=== PATIENT | female | born 1965 | race Caucasian/White ===

== ENCOUNTER 2019-02-09 17:11 | Emergency (ER) | payer MEDICARE, MEDICAID ==
--- NOTE | 2019-02-09 17:59 | EDM.PDOC ---
ED HPI GENERAL MEDICAL PROBLEM - General Chief Complaint: General Stated Complaint: right groin pain Time Seen by Provider: 02/09/19 17:39 Source of Information: Reports: Patient History Limitations: Reports: No Limitations - History of Present Illness INITIAL COMMENTS - FREE TEXT/NARRATIVE: Patient presents with severe, abrupt-onset, right groin pain at the site of an angio plug or seal that was placed yesterday after a cerebral angiogram at [facility]. She says it was fine until she was putting on her socks about half hour ago. No redness, fever or bleeding. There is a little tingling down the right leg. left groin Pain Score (Numeric/FACES): 9 - Related Data Allergies Allergy/AdvReac Type Severity Reaction Status Date / Time bismuth subsalicylate Allergy Cannot Verified 02/09/19 17:27 [From Pepto-Bismol] Remember Home Meds: Home Meds ALPRAZolam [Xanax] 0.25 mg PO TID 02/09/19 [History] Albuterol [Ventolin HFA] 2 puff INH Q6H 02/09/19 [History] Baclofen 20 mg PO QID 02/09/19 [History] Carbidopa/Levodopa [Carbidopa-Levodopa 10-100] 1 each PO DAILY 02/09/19 [History ] Gabapentin [Neurontin] 800 mg PO TID 02/09/19 [History] Naproxen 250 mg PO BID 02/09/19 [History] Naproxen Sodium [Aleve] 220 mg PO DAILY 02/09/19 [History] Omeprazole 20 mg PO DAILY 02/09/19 [History] Ondansetron [Zuplenz] 4 mg PO DAILY PRN 02/09/19 [History] Venlafaxine [Effexor] 75 mg PO DAILY 02/09/19 [History] Zolpidem [Ambien] 10 mg PO BEDTIME PRN 02/09/19 [History] oxyCODONE HCl/Acetaminophen [Oxycodone-Acetaminophen 10-300] 1 each PO Q4H PRN 02/09/19 [History] Past Medical History HEENT History: Reports: Impaired Vision Cardiovascular History: Reports: Heart Murmur, Hypertension Respiratory History: Reports: Asthma Gastrointestinal History: Reports: GERD 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 Neurological History: Reports: Cerebral Aneurysms, Migraines Psychiatric History: Reports: Anxiety, Depression - Past Surgical History GI Surgical History: Reports: Colonoscopy Neurological Surgical History: Reports: Other (See Below) Other Neurological Surgeries/Procedures: angiogram Social & Family History - Family History Family Medical History: Noncontributory - Tobacco Use Smoking Status *Q: Current Every Day Smoker Years of Tobacco use: 45 Packs/Tins Daily: 0.7 Used Tobacco, but Quit: No Second Hand Smoke Exposure: Yes - Caffeine Use Caffeine Use: Reports: Soda - Recreational Drug Use Recreational Drug Use: No ED ROS GENERAL - Review of Systems Review Of Systems: See Below Constitutional: Denies: Fever, Weakness HEENT: Reports: No Symptoms Respiratory: Reports: No Symptoms Cardiovascular: Denies: Chest Pain, Lightheadedness, Syncope Endocrine: Reports: No Symptoms GI/Abdominal: Denies: Abdominal Pain, Diarrhea, Vomiting : Denies: Dysuria, Flank Pain Musculoskeletal: Reports: Back Pain (chronic). Denies: Neck Pain, Shoulder Pain , Arm Pain, Foot Pain Skin: Denies: Cyanosis, Jaundice, Mottled, Pallor, Diaphoresis Neurological: Denies: Confusion, Dizziness, Headache, Seizure, Syncope, Trouble Speaking Psychiatric: Reports: Anxiety. Denies: Agitation, Confusion ED EXAM, GENERAL - Physical Exam Exam: See Below Exam Limited By: No Limitations General Appearance: Alert, WD/WN, No Apparent Distress Eye Exam: Bilateral Eye: EOMI, Normal Inspection, PERRL Ears: Normal External Exam, Hearing Grossly Normal Nose: Normal Inspection, No Blood Throat/Mouth: Normal Inspection, Normal Lips, Normal Voice, No Airway Compromise Head: Atraumatic, Normocephalic Neck: Normal Inspection, Full Range of Motion Respiratory/Chest: No Respiratory Distress, Lungs Clear, No Accessory Muscle Use , Decreased Breath Sounds (bilat) Cardiovascular: Regular Rate, Rhythm, No Murmur GI/Abdominal: Normal Bowel Sounds, Soft, Non-Tender Back Exam: Normal Inspection, Full Range of Motion. No: CVA Tenderness (L), CVA Tenderness (R) Extremities: No Pedal Edema, Normal Capillary Refill, Other (In the right groin there is mild bruising and moderate swelling/induration at the site of entry to the femoral vessel. The swelling is annular and about 3 cm in size. No external bleeding.) Neurological: Alert, Oriented, Normal Cognition, No Motor/Sensory Deficits Psychiatric: Normal Affect, Anxious Skin Exam: Warm, Dry, Intact, Normal Color, No Rash Course - Vital Signs Last Recorded V/S: Last Vital Signs Temp 98.4 F 02/09/19 17:17 Pulse 81 02/09/19 17:42 Resp 14 02/09/19 17:42 BP 179/132 H 02/09/19 17:42 Pulse Ox 96 02/09/19 17:42 - Re-Assessments/Exams Free Text/Narrative Re-Assessment/Exam: 02/09/19 18:16 I called [facility] and discussed case with Dr. Bah, partner of the interventional neurologist that did the procedure yesterday. He said the two most concerning side effects are a loss of pedal pulses or peritoneal hematoma evidence by new back pain. He recommends putting direct pressure on it for 10 minutes to dissipate the swelling and rest for the next 3 days; avoiding lifting and stairs. Patient says she knows where to put the pressure as they showed her yesterday so she is doing it herself. 02/09/19 18:32 She is feeling quite a bit of the usual pain in her back and hasn't had her oxycodone for 7 hours. This is also raising her blood pressure. Will give a dose now. 02/09/19 19:04 Patient is feeling quite a bit better. Discussed findings and recommendations. Pt discharged to home in stable condition. Departure - Departure Time of Disposition: 19:01 Disposition: Home, Self-Care 01 Condition: Good Clinical Impression: Groin pain Qualifiers: Laterality: right Qualified Code(s): R10.31 - Right lower quadrant pain - Discharge Information Additional Instructions: 1. Rest as much as possible for the next 3 days. Avoid stairs and lifting. 2. Take your pain medication as directed and needed. 3. Follow up with your PCP or the neurologist as previous scheduled. 4. Return to ER as needed.
[2019-02-09] MEDS ORDERED: Acetaminophen/oxyCODONE 325-5 MG Tab PO ONE (18:28)
== END 2019-02-09 19:10 | disposition home or self-care (01) ==
LOC: KA.ED 17:11
DX: R10.31 Right lower quadrant pain (principal); I10 Essential (primary) hypertension; J45.909 Unspecified asthma, uncomplicated; K21.9 Gastro-esophageal reflux disease without esophagitis; F17.210 Nicotine dependence, cigarettes, uncomplicated; Z88.8 Allergy status to other drugs, medicaments and biological substances; Z79.899 Other long term (current) drug therapy
CPT/HCPCS: 99283; 99284; A9270-GY

== ENCOUNTER 2019-05-07 06:01 | Emergency (ER) | payer MEDICARE, MEDICAID ==
[2019-05-07] MEDS ORDERED: Sodium Chloride 0.9% 1,000 ML ONE (06:05)
[2019-05-07] MEDS ORDERED: Sodium Chloride 0.9% 1,000 ML IV ONE (06:06)
--- NOTE | 2019-05-07 06:18 | EDM.PDOC ---
ED HPI GENERAL MEDICAL PROBLEM - General Chief Complaint: Neurological Problem Stated Complaint: possible stroke Time Seen by Provider: 05/07/19 06:07 Source of Information: Reports: EMS, Family History Limitations: Reports: Altered Mental Status - History of Present Illness INITIAL COMMENTS - FREE TEXT/NARRATIVE: 54 YO WF presents to ER unresponsive. Pt was last seen awake/alert around 9am yesterday. Pt with PMH of cerebral aneurysm. Pt does respond to painful stimuli. Pt is posturing on the left side and flaccid on the right. Pt with history of chronic pain and takes oxycodone/Neurontin. Daughter states she thinks her mom is coming off oxycodone. Pt has nasal trumpet to protect the airway and is breathing at a rate of 25/minute. Discussed case with Neurology- Dr Carvajal who has accepted in [place]. [facility] has been alerted. At this point pt's airway is protected. Ativan has been given for possible seizure activity. Pt is tachycardic and hypertensive. HR-105, BP-180/100. Pupils are dilated and slow to respond. Onset: Unknown/Unsure Location: Reports: Generalized - Related Data Allergies Allergy/AdvReac Type Severity Reaction Status Date / Time bismuth subsalicylate Allergy Cannot Verified 02/09/19 17:27 [From Pepto-Bismol] Remember Home Meds: Home Meds Albuterol [Ventolin HFA] 2 puff INH Q6H 02/09/19 [History] Baclofen 20 mg PO QID 02/09/19 [History] Carbidopa/Levodopa [Carbidopa-Levodopa 10-100] 1 each PO DAILY 02/09/19 [History ] Gabapentin [Neurontin] 800 mg PO TID 02/09/19 [History] Naproxen Sodium [Aleve] 220 mg PO DAILY 02/09/19 [History] Venlafaxine [Effexor] 75 mg PO DAILY 02/09/19 [History] Zolpidem [Ambien] 10 mg PO BEDTIME PRN 02/09/19 [History] ALPRAZolam [Alprazolam] 0.5 mg PO TID PRN 05/07/19 [History] Lisinopril 5 mg PO ASDIRECTED 05/07/19 [History] oxyCODONE HCl [Oxycodone HCl] 10 mg PO Q4HR PRN 05/07/19 [History] Past Medical History HEENT History: Reports: Impaired Vision Cardiovascular History: Reports: Heart Murmur, Hypertension Respiratory History: Reports: Asthma Gastrointestinal History: Reports: GERD 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 Neurological History: Reports: Cerebral Aneurysms, Migraines Psychiatric History: Reports: Anxiety, Depression - Past Surgical History GI Surgical History: Reports: Colonoscopy Neurological Surgical History: Reports: Other (See Below) Other Neurological Surgeries/Procedures: angiogram Social & Family History - Family History Family Medical History: Noncontributory - Caffeine Use Caffeine Use: Reports: Soda ED ROS GENERAL - Review of Systems Review Of Systems: Unable To Obtain - Physical Exam Exam: Not Obtained Exam Limited By: Altered Mental Status General Appearance: Obtunded Eye Exam: Bilateral Eye: PERRL Neck: Normal Inspection, Supple, Non-Tender Respiratory/Chest: No Respiratory Distress, Lungs Clear, Normal Breath Sounds, No Accessory Muscle Use, Chest Non-Tender Cardiovascular: Normal Peripheral Pulses, Regular Rate, Rhythm, No Edema, No Gallop, No JVD, No Murmur, No Rub, Tachycardia GI/Abdominal: Normal Bowel Sounds, Soft, Non-Tender, No Organomegaly, No Distention, No Abnormal Bruit, No Mass Skin Exam: Warm, Dry, Intact, Normal Color, No Rash EKG INTERPRETATION EKG Date: 05/07/19 Time: 06:08 Rhythm: NSR Rate (Beats/Min): 106 [place]: RAD-Right [place] Deviation P-Wave: Present QRS: Normal ST-T: Normal QT: Normal Course - Orders/Labs/Meds Orders: Active Orders 24 hr Category Date Time Status EKG Documentation Completion [RC] ASDIRECTED Care 05/07/19 06:06 Ordered Lynn Catheter Insertion [Insert Urinary Catheter] [OM. Care 05/07/19 06:30 Ordered PC] Q24H Urinary Catheter Assessment [RC] ASDIRECTED Care 05/07/19 06:26 Ordered Chest 1V Frontal [CR] Stat Exams 05/07/19 06:05 Ordered Head wo Cont [CT] Stat Exams 05/07/19 06:05 Ordered CBC WITH AUTO DIFF [HEME] Stat Lab 05/07/19 06:05 Ordered CK W CKMB [CHEM] Stat Lab 05/07/19 06:05 Ordered COMPREHENSIVE METABOLIC PN,CMP [CHEM] Stat Lab 05/07/19 06:05 Ordered TROPONIN I [CHEM] Stat Lab 05/07/19 06:05 Ordered UA W/MICROSCOPIC [URIN] Stat Lab 05/07/19 06:05 Ordered Sodium Chloride 0.9% @ 999 MLS/HR (1000ml) Med 05/07/19 06:06 Ordered Sodium Chloride 0.9% [Normal Saline] 1,000 ml IV .BOLUS EKG 12 Lead [EK] Routine Ther 05/07/19 06:05 Ordered Medication Orders Sodium Chloride (Normal Saline) 1,000 mls @ 999 mls/hr IV .BOLUS ONE Stop: 05/07/19 07:06 Meds: Medications Generic Name Dose Route Start Last Admin Trade Name Freq PRN Reason Stop Dose Admin Sodium Chloride 1,000 mls @ 999 mls/hr 05/07/19 06:06 Normal Saline IV 05/07/19 07:06 .BOLUS ONE Discontinued Medications Generic Name Dose Route Start Last Admin Trade Name Freq PRN Reason Stop Dose Admin Sodium Chloride Confirm 05/07/19 06:05 Normal Saline Administered 05/07/19 06:06 Dose 1,000 mls @ as directed .ROUTE .STK-MED ONE Lorazepam 1 mg 05/07/19 06:25 Ativan IVPUSH 05/07/19 06:26 ONETIME ONE Lorazepam 1 mg 05/07/19 06:41 Ativan IVPUSH 05/07/19 06:42 ONETIME ONE Lorazepam Confirm 05/07/19 06:41 Ativan Administered 05/07/19 06:42 Dose 2 mg .ROUTE .STK-MED ONE - Radiology Interpretation Free Text/Narrative:: CT head- NAD CXR- NAD - Re-Assessments/Exams Free Text/Narrative Re-Assessment/Exam: 05/07/19 06:53 after Ativan 2mg pt moving left side, and right side posturing improved. Pupils still dilated and sluggish. Will treat seizure activity while watching respiratory rate, airway and blood pressure 05/07/19 06:57 Departure - Departure Time of Disposition: 06:45 Disposition: DC/Tfer to Acute Hospital 02 Condition: Critical Clinical Impression: Unresponsive state, Seizure - Discharge Information Forms: ED Department Discharge, Interfacility Transfer EMTALA - My Orders Last 24 Hours: My Active Orders 05/07/19 06:05 Chest 1V Frontal [CR] Stat Head wo Cont [CT] Stat CBC WITH AUTO DIFF [HEME] Stat CK W CKMB [CHEM] Stat COMPREHENSIVE METABOLIC PN,CMP [CHEM] Stat TROPONIN I [CHEM] Stat UA W/MICROSCOPIC [URIN] Stat EKG 12 Lead [EK] Routine 05/07/19 06:06 EKG Documentation Completion [RC] ASDIRECTED Sodium Chloride 0.9% @ 999 MLS/HR (1000ml) Sodium Chloride 0.9% [Normal Saline] 1,000 ml IV .BOLUS 05/07/19 06:26 Urinary Catheter Assessment [RC] ASDIRECTED 05/07/19 06:30 Lynn Catheter Insertion [Insert Urinary Catheter] [OM.PC] Q24H - Assessment/Plan Last 24 Hours: My Active Orders 05/07/19 06:05 Chest 1V Frontal [CR] Stat Head wo Cont [CT] Stat CBC WITH AUTO DIFF [HEME] Stat CK W CKMB [CHEM] Stat COMPREHENSIVE METABOLIC PN,CMP [CHEM] Stat TROPONIN I [CHEM] Stat UA W/MICROSCOPIC [URIN] Stat EKG 12 Lead [EK] Routine 05/07/19 06:06 EKG Documentation Completion [RC] ASDIRECTED Sodium Chloride 0.9% @ 999 MLS/HR (1000ml) Sodium Chloride 0.9% [Normal Saline] 1,000 ml IV .BOLUS 05/07/19 06:26 Urinary Catheter Assessment [RC] ASDIRECTED 05/07/19 06:30 Lynn Catheter Insertion [Insert Urinary Catheter] [OM.PC] Q24H Assessment:: 1. Unresponsive- possible CVA vs seizure v Plan: 1. Discussed with Dr [facility]vajal Neuro in [facility] who accepted 2. concern for possible seizure activity- ativan 2mg IV given 3. supportive care 4. unable to fly patient due to weather. Fix wing aircraft 1 hour away. Will transport by ground ALS ambulance
[2019-05-07] MEDS ORDERED: LORazepam 2 MG/ML SDV IVPUSH ONE ×3 (06:25→06:56)
[2019-05-07] MEDS ORDERED: LORazepam 2 MG/ML SDV ONE (06:41)
[2019-05-07 07:10] LABS: ANION GAP 20.3 mmol/L (5-15); CHLORIDE,CL 109 mmol/L (98-115); SODIUM,NA 145 mmol/L (136-145)
--- NOTE | 2019-05-07 08:18 | CT ---
[id number] CT/CT Head WO IV EXAM: NONCONTRAST HEAD CT INDICATION: ALTERED MENTAL STATUS. COMPARISON: Brain MRI January 18, 2019. 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 Metallic structures are noted in the right scalp. Streak artifact from the scalp metallic clips in the vascular coils somewhat limits evaluation. Evaluation is particularly limited at the level of the midbrain and tereso. No mass effect, midline shift, hydrocephalus, extra-axial collection or acute territorial infarct is identified. IMPRESSION: 1. No acute findings. Arturo Le MD 05/07/19 0816 Thank you for allowing us to participate in the care of your patient.
--- NOTE | 2019-05-07 09:11 | CR ---
[id number] RAD/RAD Chest PA or AP 1V EXAM: SINGLE VIEW CHEST. INDICATION: ALTERED MENTAL STATUS COMPARISON: CORRELATION IS MADE WITH THE EXAM OF OCTOBER 30, 2018. FINDINGS: The lungs are clear. Surgical changes of the right axillary region are seen. The cardiomediastinal contour is stable. IMPRESSION: NO ACUTE PROCESS. Davie French MD 05/07/19 0969 Thank you for allowing us to participate in the care of your patient.
== END 2019-05-07 07:00 ==
LOC: KA.ED 06:01
DX: R40.0 Somnolence (principal); R56.9 Unspecified convulsions; I10 Essential (primary) hypertension; J45.909 Unspecified asthma, uncomplicated; F41.9 Anxiety disorder, unspecified; F32.9 Major depressive disorder, single episode, unspecified; Z88.3 Allergy status to other anti-infective agents; Z79.891 Long term (current) use of opiate analgesic; Z79.899 Other long term (current) drug therapy
CPT/HCPCS: 36415; 51702; 70450; 71045; 80053; 81001; 82550; 82553; 84484; 85025; 93005; 96361; 96374; 99285; J2060; J7030; 99284

== ENCOUNTER 2019-06-13 18:46 | Emergency (ER) | payer MEDICARE, MEDICAID ==
--- NOTE | 2019-06-13 19:19 | EDM.PDOC ---
ED HPI GENERAL MEDICAL PROBLEM - General Stated Complaint: LOW BLOOD PRESSURE Time Seen by Provider: 06/13/19 18:50 Source of Information: Reports: Patient, Significant Other History Limitations: Reports: No Limitations - History of Present Illness INITIAL COMMENTS - FREE TEXT/NARRATIVE: Patient presents with hypotension. She says her blood pressure was 80/60 at home and she has been lightheaded with standing the last couple days. She thinks she was dehydrated so the last 3 days has been drinking 4-6 16-oz bottles daily. She was in [facility] a month ago and was started on Carvedilol and Lisinopril for hypertension (150/90 typically). She has an appointment with [facility] tomorrow to recheck hypertensive treatment and lung congestion. She has smoked for years and has "bronchial asthma" she says but not aware of any emphysema or COPD. - Related Data Allergies Allergy/AdvReac Type Severity Reaction Status Date / Time bismuth subsalicylate Allergy Cannot Verified 02/09/19 17:27 [From Pepto-Bismol] Remember Home Meds: Home Meds Albuterol [Ventolin HFA] 2 puff INH Q6H PRN 02/09/19 [History] Baclofen 20 mg PO QID 02/09/19 [History] Carbidopa/Levodopa [Carbidopa-Levodopa 10-100] 1 each PO DAILY 02/09/19 [History ] Gabapentin [Neurontin] 800 mg PO TID 02/09/19 [History] Naproxen Sodium [Aleve] 220 mg PO DAILY 02/09/19 [History] Venlafaxine [Effexor] 75 mg PO DAILY 02/09/19 [History] Zolpidem [Ambien] 10 mg PO BEDTIME PRN 02/09/19 [History] ALPRAZolam [Alprazolam] 0.5 mg PO TID PRN 05/07/19 [History] Lisinopril 5 mg PO ASDIRECTED 05/07/19 [History] oxyCODONE HCl [Oxycodone HCl] 10 mg PO Q4HR PRN 05/07/19 [History] Carvedilol 3.125 mg PO BID 06/13/19 [History] Escitalopram [Lexapro] 20 mg PO DAILY 06/13/19 [History] Ondansetron [Zofran ODT] 4 mg PO ASDIRECTED 06/13/19 [History] Vitamin B Complex [B Complex] 1 each PO DAILY 06/13/19 [History] levETIRAcetam [Levetiracetam] 1,000 mg PO BID 06/13/19 [History] Past Medical History HEENT History: Reports: Impaired Vision Cardiovascular History: Reports: Heart Murmur, Hypertension Respiratory History: Reports: Asthma Gastrointestinal History: Reports: 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 Neurological History: Reports: Cerebral Aneurysms, Migraines Psychiatric History: Reports: Anxiety, Depression Dermatologic History: Reports: Melanoma, Other (See Below) Other Dermatologic History: unsure, though possibly has had melanoma with skin grafting. - Past Surgical History GI Surgical History: Reports: Colonoscopy Neurological Surgical History: Reports: Other (See Below) Other Neurological Surgeries/Procedures: angiogram; coiling of cerebral aneurysm in February. Social & Family History - Family History Family Medical History: Noncontributory - Caffeine Use Caffeine Use: Reports: Soda ED ROS GENERAL - Review of Systems Review Of Systems: See Below Constitutional: Denies: Fever, Chills, Malaise, Weakness HEENT: Denies: Ear Pain, Throat Pain, Vision Change Respiratory: Reports: Wheezing. Denies: Shortness of Breath Cardiovascular: Reports: Lightheadedness. Denies: Chest Pain, Syncope Endocrine: Reports: No Symptoms GI/Abdominal: Denies: Abdominal Pain : Denies: Dysuria Musculoskeletal: Reports: Neck Pain (chronic). Denies: Shoulder Pain, Arm Pain Skin: Denies: Cyanosis, Jaundice, Mottled, Pallor, Diaphoresis Neurological: Denies: Confusion, Dizziness, Seizure, Syncope, Trouble Speaking, Difficulty Walking Psychiatric: Denies: Agitation ED EXAM, GENERAL - Physical Exam Exam: See Below Exam Limited By: No Limitations General Appearance: Alert, WD/WN, No Apparent Distress Eye Exam: Bilateral Eye: EOMI, Normal Inspection, PERRL Ears: Normal External Exam, Hearing Grossly Normal Nose: Normal Inspection, No Blood Throat/Mouth: Normal Inspection, Normal Lips, Normal Voice (smokers voice), No Airway Compromise Head: Atraumatic, Normocephalic Neck: Normal Inspection, Full Range of Motion Respiratory/Chest: Rales (mild, bases), Wheezing (bilat with exhaling), Prolonged Expiration (mild). No: Rhonchi, Stridor, Accessory Muscle Use Cardiovascular: Normal Peripheral Pulses, Regular Rate, Rhythm, No Edema, No Gallop Peripheral Pulses: 2+: Carotid (L), Carotid (R), Radial (L), Radial (R), Posterior Tibial (L), Posterior Tibial (R) GI/Abdominal: Normal Bowel Sounds, Soft, Non-Tender Back Exam: Normal Inspection, Full Range of Motion Extremities: Normal Inspection, Normal Range of Motion Neurological: Alert, Oriented, Normal Cognition, No Motor/Sensory Deficits Psychiatric: Normal Affect, Normal Mood Skin Exam: Warm, Dry, Intact, Normal Color, No Rash Course - Vital Signs Last Recorded V/S: Last Vital Signs Temp 97.3 F 06/13/19 19:03 Pulse 79 06/13/19 20:17 Resp 18 06/13/19 20:17 BP 106/47 L 06/13/19 20:17 Pulse Ox 91 L 06/13/19 20:17 - Orders/Labs/Meds Orders: Active Orders 24 hr Category Date Time Status EKG Documentation Completion [RC] ASDIRECTED Care 06/13/19 20:19 Ordered EKG 12 Lead [EK] Routine Ther 06/13/19 20:19 Ordered Labs: Laboratory Tests 06/13/19 06/13/19 Range/Units 19:15 19:15 WBC 9.00 D (5.00-10.00) 10^3/uL RBC 4.98 (3.80-5.50) 10^6/uL Hgb 15.0 D (12.0-16.0) g/dL Hct 44.5 (37.0-47.0) % MCV 89.4 (82.0-92.0) fL MCH 30.1 (27.0-31.0) pg MCHC 33.7 (32.0-36.0) g/dL RDW 14.5 (11.5-14.5) % Plt Count 243 D (150-400) 10^3/uL MPV 9.8 (7.4-10.4) fL Immature Gran % (Auto) 0.1 (0.0-5.0) % Neut % (Auto) 81.4 H (50.0-70.0) % Lymph % (Auto) 11.0 L (20.0-40.0) % [place] % (Auto) 6.1 (2.0-8.0) % Eos % (Auto) 1.2 (1.0-3.0) % Baso % (Auto) 0.2 (0.0-1.0) % Immature Gran # (Auto) 0.01 (0.00-0.50) 10^3/uL Neut # (Auto) 7.32 H (2.50-7.00) 10^3/uL Lymph # (Auto) 0.99 L (1.00-4.00) 10^3/uL [place] # (Auto) 0.55 (0.10-0.80) 10^3/uL Eos # (Auto) 0.11 (0.10-0.30) 10^3/uL Baso # (Auto) 0.02 (0.00-0.10) 10^3/uL Sodium 144 (136-145) mmol/L Potassium 3.7 D (3.3-5.3) mmol/L Chloride 105 (98-115) mmol/L Carbon Dioxide 29.9 (21.0-32.0) mmol/L Anion Gap 12.8 (5-15) mmol/L BUN 29 H (6-25) mg/dL Creatinine 2.98 H D (0.51-1.17) mg/dL Est Cr Clr Drug Dosing 16.10 mL/min Estimated GFR (MDRD) 16 mL/min Glucose 132 H (75 - 99) mg/dL Calcium 9.4 (8.7-10.3) mg/dL Meds: Medications Discontinued Medications Generic Name Dose Route Start Last Admin Trade Name Freq PRN Reason Stop Dose Admin Sodium Chloride 1,000 mls @ 999 mls/hr 06/13/19 19:14 06/13/19 19:32 Normal Saline IV 06/13/19 20:14 999 mls/hr .BOLUS ONE Administration Ondansetron HCl 4 mg 06/13/19 19:25 06/13/19 19:36 Zofran IVPUSH 06/13/19 19:26 4 mg ONETIME ONE Administration - Re-Assessments/Exams Free Text/Narrative Re-Assessment/Exam: 06/13/19 20:36 Creatinine 2.98, GFR 16, BUN 29. These are all acute changes in the last month. Discussed with Dr. Lopez and will stop the Lisinopril and hold the carvedilol for now. Pt will recheck tomorrow in clinic and may need to come for repeat labs in two days. Discussed findings and treatment plan with patient. EKG and CXR look okay. Patient discharged to home in stable condition after a liter of IV saline. Departure - Departure Time of Disposition: 20:34 Disposition: Home, Self-Care 01 Condition: Good Clinical Impression: Acute renal failure due to angiotensin converting enzyme (LUCERO) inhibitor, Hypotension due to medication Referrals: Maida Diaz PA-C [Primary Care Provider] - Additional Instructions: 1. Stop taking your Lisinopril. 2. Don't take your Carvedilol at least until you see your PCP, LIG[facility] Park tomorrow in clinic as scheduled. - My Orders Last 24 Hours: My Active Orders 06/13/19 20:19 EKG Documentation Completion [RC] ASDIRECTED EKG 12 Lead [EK] Routine - Assessment/Plan Last 24 Hours: My Active Orders 06/13/19 20:19 EKG Documentation Completion [RC] ASDIRECTED EKG 12 Lead [EK] Routine
[2019-06-13] MEDS: Sodium Chloride 0.9% 1,000 ML IV ONE (19:32)
[2019-06-13] MEDS: Ondansetron 4 MG/2 ML SDV IVPUSH ONE (19:36)
[2019-06-13 19:45] LABS: ANION GAP 12.8 mmol/L (5-15)
--- NOTE | 2019-06-13 20:15 | CR ---
[id number] RAD/RAD Chest PA And Lateral EXAM: RAD Chest PA And Lateral CLINICAL DATA: WHEEZING COMPARISON: CORRELATION IS MADE WITH THE EXAM OF MAY 07, 2019 FINDINGS: The lungs are clear but hyperaerated Surgical clips are seen in the right axillary region The cardiomediastinal contour is stable IMPRESSION: AIRWAY DISEASE Davie French MD 06/13/192013 Thank you for allowing us to participate in the care of your patient.
== END 2019-06-13 20:40 | disposition home or self-care (01) ==
LOC: KA.ED 18:46
DX: N17.9 Acute kidney failure, unspecified (principal); I95.2 Hypotension due to drugs; T46.4X5A Adverse effect of angiotensin-converting-enzyme inhibitors, initial encounter; I10 Essential (primary) hypertension; F41.9 Anxiety disorder, unspecified; F32.9 Major depressive disorder, single episode, unspecified; Z88.8 Allergy status to other drugs, medicaments and biological substances
CPT/HCPCS: 36415; 71046; 80048; 85025; 93005; 96361; 96374; 99284; 99285-25; J2405; J7030

== ENCOUNTER 2019-08-09 17:29 | Emergency (ER) | payer MEDICARE, MEDICAID, OTHER ==
[2019-08-09] MEDS ORDERED: Sodium Chloride 0.9% 10 ML Syringe FLUSH PRN (18:04)
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
[2019-08-09 18:32] LABS: ANION GAP 12.7 mmol/L (5-15); CHLORIDE,CL 105 mmol/L (98-115); SODIUM,NA 142 mmol/L (136-145)
[2019-08-09] MEDS ORDERED: Sodium Chloride 0.9% 1,000 ML IV ONE (18:43)
--- NOTE | 2019-08-09 18:43 | CT ---
[id number] CT/CT Head WO IV EXAM: CT Head WO IV CLINICAL DATA: CONFUSION. COMPARISON STUDY: None FINDINGS: No intracranial hemorrhage, extra-axial fluid collection, mass, or acute ischemia. 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 Soft tissues are unremarkable. Paranasal sinuses and mastoid air cells are clear. IMPRESSION: No acute intracranial findings. Elder Greenberg DO 08/09/19 1843 Thank you for allowing us to participate in the care of your patient.
--- NOTE | 2019-08-09 18:44 | CR ---
[id number] RAD/RAD Chest PA And Lateral EXAM: RAD Chest PA And Lateral INDICATION: CONFUSION. COMPARISON: June 13, 2019. DISCUSSION: Cardiomediastinal silhouette is normal in size and contour. No infiltrate, effusion, pneumothorax, or edema. Left basilar subsegmental atelectasis and/or scarring. IMPRESSION: No acute cardiopulmonary abnormality. Elder Greenberg DO 08/09/19 1843 Thank you for allowing us to participate in the care of your patient.
[2019-08-09 18:46] LABS: THC SCREEN,URINE 50 NG/ML POSITIVE (NEGATIVE)
[2019-08-09 18:47] LABS: BARBITURATE SCREEN,URINE NEGATIVE (NEGATIVE); BENZODIAZEPINES SCREEN,URINE POSITIVE (NEGATIVE); TCA SCREEN,URINE NEGATIVE (NEGATIVE)
[2019-08-09] MEDS ORDERED: Cephalexin 250 MG Cap PO ONE (18:52)
[2019-08-09] MEDS ORDERED: Phenazopyridine 100 MG Tab PO PRN (18:52)
== END 2019-08-09 19:15 | disposition home or self-care (01) ==
LOC: KA.ED 17:29
DX: N39.0 Urinary tract infection, site not specified (principal); I10 Essential (primary) hypertension; F41.9 Anxiety disorder, unspecified; F32.9 Major depressive disorder, single episode, unspecified; K21.9 Gastro-esophageal reflux disease without esophagitis; J45.909 Unspecified asthma, uncomplicated; Z88.8 Allergy status to other drugs, medicaments and biological substances; Z79.899 Other long term (current) drug therapy; Z79.51 Long term (current) use of inhaled steroids
CPT/HCPCS: 36415; 70450; 71046; 80053; 80305; 81001; 85025; 87086; 93005; 99285; A9270; 99284

== ENCOUNTER 2019-12-01 19:38 | Observation (INO) | payer MEDICARE, MEDICAID ==
[2019-12-01] MEDS ORDERED: Sodium Chloride 0.9% 10 ML Syringe FLUSH PRN (19:50)
[2019-12-01] MEDS ORDERED: Sodium Chloride 0.9% 1,000 ML ONE (19:51)
[2019-12-01] MEDS ORDERED: Sodium Chloride 0.9% 1,000 ML IV ONE (19:54)
[2019-12-01] MEDS ORDERED: Naloxone 0.4 MG/ML Syringe IVPUSH ONE (19:54)
--- NOTE | 2019-12-01 20:17 | EDM.PDOC ---
ED HPI GENERAL MEDICAL PROBLEM - General Chief Complaint: Neurological Problem Stated Complaint: UNRESPONSIVE Time Seen by Provider: 12/01/19 19:52 Source of Information: Reports: EMS, EMS Notes Reviewed, Family History Limitations: Reports: Altered Mental Status - History of Present Illness INITIAL COMMENTS - FREE TEXT/NARRATIVE: Patient is a 54-year-old female that presents to the emergency department this evening via EMS secondary to unresponsive state. The local police and EMS were called to the home by family member who stated that she was unresponsive. Upon arriving at the home, they found the patient in bed, only responsive to pain. Patient was transported to ER, no medication given in route. Upon presentation to the emergency department, patient was found to be lethargic but responsive to voice and opening eyes. Patient's pupils were 8 mm dilated and nonresponsive to light. Discussion with family members revealed patient uses OxyContin, crushed and snorted. This is been a chronic condition. Family members denied any trauma. Patient does not respond to questions at this time. However, she will open eyes and move extremities. Onset: Unknown/Unsure Duration: Chronic (Narcotic use), Getting Worse Severity: Moderate Improves with: Reports: None Worsens with: Reports: None Associated Symptoms: Reports: No Other Symptoms - Related Data Allergies Allergy/AdvReac Type Severity Reaction Status Date / Time bismuth subsalicylate Allergy Cannot Verified 12/01/19 20:54 [From Pepto-Bismol] Remember Home Meds: Home Meds Albuterol [Ventolin HFA] 2 puff INH Q6H PRN 02/09/19 [History] Baclofen 20 mg PO QID 02/09/19 [History] Carbidopa/Levodopa [Carbidopa-Levodopa 10-100] 1 each PO DAILY 02/09/19 [History ] Gabapentin [Neurontin] 800 mg PO TID 02/09/19 [History] Naproxen Sodium [Aleve] 220 mg PO DAILY 02/09/19 [History] Zolpidem [Ambien] 10 mg PO BEDTIME PRN 02/09/19 [History] ALPRAZolam [Alprazolam] 0.5 mg PO TID PRN 05/07/19 [History] oxyCODONE HCl [Oxycodone HCl] 10 mg PO Q4HR PRN 05/07/19 [History] Escitalopram [Lexapro] 20 mg PO DAILY 06/13/19 [History] Ondansetron [Zofran ODT] 4 mg PO ASDIRECTED 06/13/19 [History] Vitamin B Complex [B Complex] 1 each PO DAILY 06/13/19 [History] levETIRAcetam [Levetiracetam] 1,000 mg PO BID 06/13/19 [History] Omeprazole 20 mg PO BID 08/09/19 [History] ARIPiprazole [Aripiprazole] 5 mg PO DAILY 12/01/19 [History] Past Medical History HEENT History: Reports: Impaired Vision Cardiovascular History: Reports: Heart Murmur, Hypertension Respiratory History: Reports: Asthma Gastrointestinal History: Reports: GERD [employer]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 Neurological History: Reports: Cerebral Aneurysms, Migraines Psychiatric History: Reports: Anxiety, Depression Dermatologic History: Reports: Melanoma, Other (See Below) Other Dermatologic History: unsure, though possibly has had melanoma with skin grafting. - Past Surgical History GI Surgical History: Reports: Colonoscopy Neurological Surgical History: Reports: Other (See Below) Other Neurological Surgeries/Procedures: angiogram; coiling of cerebral aneurysm in February. Social & Family History - Family History Family Medical History: Noncontributory - Caffeine Use Caffeine Use: Reports: Soda ED ROS GENERAL - Review of Systems Review Of Systems: Comprehensive ROS is negative, except as noted in HPI. Constitutional: Reports: No Symptoms HEENT: Reports: No Symptoms Respiratory: Reports: No Symptoms Cardiovascular: Reports: No Symptoms Endocrine: Reports: No Symptoms GI/Abdominal: Reports: No Symptoms : Reports: No Symptoms Musculoskeletal: Reports: No Symptoms Skin: Reports: No Symptoms Neurological: Reports: Other (Nonresponsive) Psychiatric: Reports: No Symptoms Hematologic/Lymphatic: Reports: No Symptoms Immunologic: Reports: No Symptoms - Physical Exam Exam: See Below Exam Limited By: Altered Mental Status General Appearance: Obtunded Eye Exam: Bilateral Eye: Abnormal Pupil (8 mm and unresponsive to light) Nose: Normal Inspection, Normal Mucosa, No Blood Throat/Mouth: Normal Inspection, Normal Oropharynx, No Airway Compromise Head Exam: Atraumatic, Normocephalic Neck: Normal Inspection, Supple Respiratory/Chest: No Respiratory Distress, Lungs Clear, Normal Breath Sounds, No Accessory Muscle Use Cardiovascular: Regular Rate, Rhythm, No Murmur GI/Abdominal: Normal Bowel Sounds, Soft, Non-Tender, No Organomegaly, No Distention, No Abnormal Bruit, No Mass Neuro Exam (Abbreviated): Slow to Respond (Response to pain but not questions) Extremities: Normal Inspection, No Pedal Edema Skin Exam: Warm, Dry, Intact, Normal Color, No Rash Course - Vital Signs Last Recorded V/S: Last Vital Signs Temp 98.3 F 12/01/19 19:45 Pulse 124 H 12/01/19 19:45 Resp BP 162/103 H 12/01/19 19:45 Pulse Ox 93 L 12/01/19 19:45 - Orders/Labs/Meds Orders: Active Orders 24 hr Category Date Time Status EKG Documentation Completion [RC] ASDIRECTED Care 12/01/19 19:54 Ordered Head wo Cont [CT] Stat Exams 12/01/19 19:54 Ordered EKG 12 Lead [EK] Routine Ther 12/01/19 19:54 Ordered Labs: Laboratory Tests 12/01/19 12/01/19 12/01/19 Range/Units 19:50 19:50 19:50 WBC 9.26 (5.00-10.00) 10^3/uL RBC 5.27 (3.80-5.50) 10^6/uL Hgb 15.2 (12.0-16.0) g/dL Hct 46.7 (37.0-47.0) % MCV 88.6 (82.0-92.0) fL MCH 28.8 (27.0-31.0) pg MCHC 32.5 (32.0-36.0) g/dL RDW 15.4 H (11.5-14.5) % Plt Count 228 (150-400) 10^3/uL MPV 9.7 (7.4-10.4) fL Immature Gran % (Auto) 0.1 (0.0-5.0) % Neut % (Auto) 84.7 H (50.0-70.0) % Lymph % (Auto) 9.3 L (20.0-40.0) % [place] % (Auto) 5.6 (2.0-8.0) % Eos % (Auto) 0.1 L (1.0-3.0) % Baso % (Auto) 0.2 (0.0-1.0) % Immature Gran # (Auto) 0.01 (0.00-0.50) 10^3/uL Neut # (Auto) 7.84 H (2.50-7.00) 10^3/uL Lymph # (Auto) 0.86 L (1.00-4.00) 10^3/uL [place] # (Auto) 0.52 (0.10-0.80) 10^3/uL Eos # (Auto) 0.01 L (0.10-0.30) 10^3/uL Baso # (Auto) 0.02 (0.00-0.10) 10^3/uL PT 10.8 (8.9-11.4) SEC INR 1.1 (0.9-1.1) APTT 23.9 (23.1-31.9) SEC Sodium 145 (136-145) mmol/L Potassium 4.2 (3.3-5.3) mmol/L Chloride 101 (98-115) mmol/L Carbon Dioxide 30.7 (21.0-32.0) mmol/L Anion Gap 17.5 H (5-15) mmol/L BUN 34 H (6-25) mg/dL Creatinine 0.80 (0.51-1.17) mg/dL Est Cr Clr Drug Dosing TNP Estimated GFR (MDRD) > 60 mL/min Glucose 96 (75 - 99) mg/dL Calcium 9.2 (8.7-10.3) mg/dL Total Bilirubin 0.5 (0.2-1.0) mg/dL AST 249 H (15-37) U/L ALT 244 H (12-78) U/L Alkaline Phosphatase 115 (46-116) IU/L Total Protein 6.8 (6.4-8.2) g/dL Albumin 3.32 (3.00-4.80) g/dL Urine Opiates Screen (NEGATIVE) Ur Oxycodone Screen (NEGATIVE) Urine Methadone Screen (NEGATIVE) Ur Propoxyphene Screen (NEGATIVE) Acetaminophen (10.0-30.0) ug/mL Ur Barbiturates Screen (NEGATIVE) Ur Tricyclics Screen (NEGATIVE) Ur Phencyclidine Scrn (NEGATIVE) Ur Amphetamine Screen (NEGATIVE) U Methamphetamines Scrn (NEGATIVE) U Benzodiazepines Scrn (NEGATIVE) U Cocaine Metab Screen (NEGATIVE) U Marijuana (THC) Screen (NEGATIVE) Ethyl Alcohol < 3 (NONE DETECTED) mg/dL 12/01/19 12/01/19 Range/Units 19:50 20:40 WBC (5.00-10.00) 10^3/uL RBC (3.80-5.50) 10^6/uL Hgb (12.0-16.0) g/dL Hct (37.0-47.0) % MCV (82.0-92.0) fL MCH (27.0-31.0) pg MCHC (32.0-36.0) g/dL RDW (11.5-14.5) % Plt Count (150-400) 10^3/uL MPV (7.4-10.4) fL Immature Gran % (Auto) (0.0-5.0) % Neut % (Auto) (50.0-70.0) % Lymph % (Auto) (20.0-40.0) % [place] % (Auto) (2.0-8.0) % Eos % (Auto) (1.0-3.0) % Baso % (Auto) (0.0-1.0) % Immature Gran # (Auto) (0.00-0.50) 10^3/uL Neut # (Auto) (2.50-7.00) 10^3/uL Lymph # (Auto) (1.00-4.00) 10^3/uL [place] # (Auto) (0.10-0.80) 10^3/uL Eos # (Auto) (0.10-0.30) 10^3/uL Baso # (Auto) (0.00-0.10) 10^3/uL PT (8.9-11.4) SEC INR (0.9-1.1) APTT (23.1-31.9) SEC Sodium (136-145) mmol/L Potassium (3.3-5.3) mmol/L Chloride (98-115) mmol/L Carbon Dioxide (21.0-32.0) mmol/L Anion Gap (5-15) mmol/L BUN (6-25) mg/dL Creatinine (0.51-1.17) mg/dL Est Cr Clr Drug Dosing Estimated GFR (MDRD) mL/min Glucose (75 - 99) mg/dL Calcium (8.7-10.3) mg/dL Total Bilirubin (0.2-1.0) mg/dL AST (15-37) U/L ALT (12-78) U/L Alkaline Phosphatase (46-116) IU/L Total Protein (6.4-8.2) g/dL Albumin (3.00-4.80) g/dL Urine Opiates Screen Negative (NEGATIVE) Ur Oxycodone Screen Positive H (NEGATIVE) Urine Methadone Screen Negative (NEGATIVE) Ur Propoxyphene Screen Negative (NEGATIVE) Acetaminophen 0.0 L (10.0-30.0) ug/mL Ur Barbiturates Screen Negative (NEGATIVE) Ur Tricyclics Screen Negative (NEGATIVE) Ur Phencyclidine Scrn Negative (NEGATIVE) Ur Amphetamine Screen Negative (NEGATIVE) U Methamphetamines Scrn Negative (NEGATIVE) U Benzodiazepines Scrn Positive H (NEGATIVE) U Cocaine Metab Screen Negative (NEGATIVE) U Marijuana (THC) Screen Positive H (NEGATIVE) Ethyl Alcohol (NONE DETECTED) mg/dL Meds: Medications Discontinued Medications Generic Name Dose Route Start Last Admin Trade Name Freq PRN Reason Stop Dose Admin Sodium Chloride Confirm 12/01/19 19:51 Normal Saline Administered 12/01/19 19:52 Dose 1,000 mls @ as directed .ROUTE .STK-MED ONE Sodium Chloride 1,000 mls @ 999 mls/hr 12/01/19 19:54 Normal Saline IV 12/01/19 20:54 .BOLUS ONE Naloxone HCl 0.4 mg 12/01/19 19:54 Narcan IVPUSH 12/01/19 19:55 ONETIME ONE - Radiology Interpretation Free Text/Narrative:: CT head shows no acute intracranial process - Re-Assessments/Exams Free Text/Narrative Re-Assessment/Exam: 12/01/19 21:31 Patient became more aroused and responsive following 0.4 Narcan administration. is at bedside. Patient responds appropriately. Patient will be admitted for observation and followed closely. 12/01/19 22:01 Departure - Departure Time of Disposition: 22:01 Disposition: Refer to Observation Condition: Fair Clinical Impression: Altered mental status associated with intoxication Drug overdose Qualifiers: Encounter type: initial encounter Injury intent: accidental or unintentional Qualified Code(s): T50.901A - Poisoning by unspecified drugs, medicaments and biological substances, accidental (unintentional), initial encounter - Discharge Information Referrals: Maida Diaz PA-C [Primary Care Provider] - Forms: ED Department Discharge Sepsis Event Note - Focused Exam Vital Signs: Vital Signs Temp Pulse BP Pulse Ox 12/01/19 19:45 98.3 F 124 H 162/103 H 93 L Date Exam was Performed: 12/01/19 Time Exam was Performed: 22:01 - My Orders Last 24 Hours: My Active Orders 12/01/19 19:54 EKG Documentation Completion [RC] ASDIRECTED Head wo Cont [CT] Stat EKG 12 Lead [EK] Routine - Assessment/Plan Admission H&P: Please use this note as an admission H&P Last 24 Hours: My Active Orders 12/01/19 19:54 EKG Documentation Completion [RC] ASDIRECTED Head wo Cont [CT] Stat EKG 12 Lead [EK] Routine Assessment:: Altered mental status secondary to narcotic use Plan: Admit for observation
[2019-12-01 20:18] LABS: ANION GAP 17.5 mmol/L (5-15); CHLORIDE,CL 101 mmol/L (98-115); SODIUM,NA 145 mmol/L (136-145)
[2019-12-01 20:38] LABS: PTT,PARTIAL THROMBOPLSTIN TIME 23.9 SEC (23.1-31.9)
[2019-12-01 20:50] LABS: THC SCREEN,URINE 50 NG/ML POSITIVE (NEGATIVE)
[2019-12-01 20:51] LABS: BENZODIAZEPINES SCREEN,URINE POSITIVE (NEGATIVE)
[2019-12-01 20:52] LABS: BARBITURATE SCREEN,URINE NEGATIVE (NEGATIVE); TCA SCREEN,URINE NEGATIVE (NEGATIVE)
[2019-12-01] MEDS ORDERED: Albuterol 8 GM Inhaler INH PRN (22:04)
[2019-12-01] MEDS ORDERED: Non-Formulary Medication 1 Each (Ondansetron [Zofran Odt] 4 MG) PO SCH (22:15)
[2019-12-02] MEDS ORDERED: Non-Formulary Medication 1 Each (Ondansetron [Zofran Odt] 4 MG) PO PRN (01:07)
[2019-12-02] MEDS ORDERED: Ondansetron 4 MG Tab.DIS**OWN MED PO PRN (01:19)
[2019-12-02] MEDS ORDERED: Omeprazole 20 MG Cap.CR**OWN MED PO SCH (07:00)
[2019-12-02] MEDS ORDERED: CARBIDOPA PO SCH ×2 (09:00)
[2019-12-02] MEDS ORDERED: Non-Formulary Medication 1 Each (Levetiracetam [Levetiracetam] 1,000 MG) PO SCH (09:00)
[2019-12-02] MEDS ORDERED: Non-Formulary Medication 1 Each (Omeprazole [Omeprazole] 20 MG) PO SCH (09:00)
[2019-12-02] MEDS ORDERED: ESCITALOPRAM 20 MG PO SCH (09:00)
[2019-12-02] MEDS ORDERED: Non-Formulary Medication 1 Each (Escitalopram [Lexapro] 20 MG) PO SCH (09:00)
[2019-12-02] MEDS ORDERED: LEVODOPA PO SCH ×2 (09:00)
[2019-12-02] MEDS ORDERED: BACLOFEN 20 MG PO SCH (09:00)
[2019-12-02] MEDS ORDERED: LEVETIRACETAM 1000 MG PO SCH (09:00)
[2019-12-02] MEDS ORDERED: Non-Formulary Medication 1 Each (Baclofen [Baclofen] 20 MG) PO SCH (09:00)
--- NOTE | 2019-12-02 09:49 | CT ---
[id number] CT/CT Head WO IV EXAM: NONCONTRAST HEAD CT INDICATION: Altered mental status. COMPARISON: December 01, 2019. DISCUSSION: Vascular coils in the expected location of the tip of the basilar artery and right face/neck clips result in streak artifact. This along with motion artifact somewhat limit this assessment. The patterson and white matter appear maintained. Ventricles and sulci are normal in size and configuration. No acute hemorrhage, mass effect, midline shift or hydrocephalus. No territorial infarct is identified. IMPRESSION: 1. No acute findings. Arturo Le MD 12/02/19 0948 Thank you for allowing us to participate in the care of your patient.
--- NOTE | 2019-12-05 09:21 | PCM.DCSUM1 ---
Discharge Summary - Hospital Course Free Text/Narrative:: Patient is a 54-year-old female who presented to the emergency department on November 30 for altered mental status. Patient was found to have narcotic overdose. No other medical concerns at that time. Patient was admitted to the hospital for observation. Diagnosis: Stroke: No Modified [place] Scale: No Signif.Disability Despite Sympt.Able to Carry Out Usual Act./Duties Modified Sage Scale Score: 1 - Discharge Data Discharge Date: 12/02/19 Discharge Disposition: Home, Self-Care 01 Condition: Good - Referral to Home Health Date of Face to Face Encounter: 12/02/19 Primary Care Physician: Maida Diaz PA-C - Patient Instructions Diet: Usual Diet as Tolerated Activity: Rest and Relax Today Driving: Do Not Drive Showering/Bathing: May Shower Other/Special Instructions: CALL [facility] IN THE MORNING AND SCHEDULE APPOINTMENT WITH DR. OMER ALVAREZ MD FOR THIS WEEK. - Discharge Plan Home Medications: Home Meds Albuterol [Ventolin HFA] 2 puff INH Q6H PRN 02/09/19 [History] Baclofen 20 mg PO QID 02/09/19 [History] Carbidopa/Levodopa [Carbidopa-Levodopa 10-100] 1 each PO DAILY 02/09/19 [History ] Gabapentin [Neurontin] 800 mg PO TID 02/09/19 [History] Naproxen Sodium [Aleve] 440 mg PO DAILY 02/09/19 [History] Zolpidem [Ambien] 10 mg PO BEDTIME PRN 02/09/19 [History] ALPRAZolam [Alprazolam] 0.5 mg PO TID 05/07/19 [History] Escitalopram [Lexapro] 20 mg PO DAILY 06/13/19 [History] Ondansetron [Zofran ODT] 4 mg PO Q6H 06/13/19 [History] Vitamin B Complex [B Complex] 1 each PO DAILY 06/13/19 [History] levETIRAcetam [Levetiracetam] 1,000 mg PO BID 06/13/19 [History] Omeprazole 20 mg PO BID 08/09/19 [History] ARIPiprazole [Aripiprazole] 5 mg PO DAILY 12/01/19 [History] Sennosides [Senna] 17.2 mg PO DAILY 12/01/19 [History] Oxygen Therapy Mode: Room Air Forms: ED Department Discharge Referrals: Maida Diaz PA-C [Primary Care Provider] - - Discharge Summary/Plan Comment DC Time >30 min.: No Discharge Summary/Plan Comment: Follow-up tomorrow at clinic with Dr. Alvarez. Return to the emergency department sooner if symptoms continue or worsen. - Patient Data Vitals - Most Recent: Last Vital Signs Temp 97.2 F 12/02/19 11:00 Pulse 59 L 12/02/19 11:00 Resp 18 12/02/19 11:00 BP 173/95 H 12/02/19 11:00 Pulse Ox 96 12/02/19 11:00 Weight - Most Recent: 150 lb Med Orders - Current: Current Medications Discontinued Medications Albuterol (Ventolin Hfa) 0 gm INH Q6H PRN PRN Reason: Shortness of Breath Carbidopa/Levodopa (Sinemet 10-100 Mg) 1 tab PO DAILY SANJANA Last Admin: 12/02/19 09:29 Dose: 1 tab Sodium Chloride (Normal Saline) Confirm Administered Dose 1,000 mls @ as directed .ROUTE .STK-MED ONE Stop: 12/01/19 19:52 Last Admin: 12/01/19 19:53 Dose: 999 mls/hr Sodium Chloride (Normal Saline) 1,000 mls @ 999 mls/hr IV .BOLUS ONE Stop: 12/01/19 20:54 Last Admin: 12/02/19 03:14 Dose: Not Given Naloxone HCl (Narcan) 0.4 mg IVPUSH ONETIME ONE Stop: 12/01/19 19:55 Last Admin: 12/01/19 20:00 Dose: 0.4 mg Non-Formulary Medication (Baclofen [Baclofen]) 20 mg PO QID SANJANA Non-Formulary Medication (Carbidopa/Levodopa [Carbidopa-Levodopa 10-100]) 1 each PO DAILY SANJANA Non-Formulary Medication (Escitalopram [Lexapro]) 20 mg PO DAILY SANJANA Non-Formulary Medication (Levetiracetam [Levetiracetam]) 1,000 mg PO BID SANJANA Non-Formulary Medication (Omeprazole [Omeprazole]) 20 mg PO BID SANJANA Non-Formulary Medication (Ondansetron [Zofran Odt]) 4 mg PO ASDIRECTED [facility] Baclofen 20 Mg Tab (Own Med) 20 mg PO QID [facility] Last Admin: 12/02/19 09:30 Dose: 20 mg Levetiracetam 1,000 (Mg TabOwn Med) 1,000 mg PO BID [facility] Last Admin: 12/02/19 09:30 Dose: 1,000 mg Escitalopram [ Lexapro] 20 Mg Tab Own Med 20 mg PO DAILY [facility] Last Admin: 12/02/19 09:30 Dose: 20 mg Omeprazole (Omeprazole) 20 mg PO BID@0700,1700 [facility] Last Admin: 12/02/19 06:46 Dose: Not Given Ondansetron HCl (Zofran Odt) 4 mg PO Q6H PRN PRN Reason: Nausea/Vomiting Sodium Chloride (Saline Flush) 10 ml FLUSH Q8HR PRN PRN Reason: keep vein open
== END 2019-12-02 14:10 | disposition home or self-care (01) ==
LOC: KA.ED 19:38 → KA.MS 22:02
PROVIDERS: ADMIT Physician Assistant Surgical; ATTEND Internal Medicine
DX: R41.82 Altered mental status, unspecified (principal); T40.605A Adverse effect of unspecified narcotics, initial encounter; K21.9 Gastro-esophageal reflux disease without esophagitis; J45.909 Unspecified asthma, uncomplicated; F41.9 Anxiety disorder, unspecified; F32.9 Major depressive disorder, single episode, unspecified; Z88.8 Allergy status to other drugs, medicaments and biological substances; Z79.899 Other long term (current) drug therapy; Z79.51 Long term (current) use of inhaled steroids
CPT/HCPCS: 51702; 70450; 80053; 80305-QW; 80307; 85025; 85610; 85730; 93005; 96361; 96374; 99285-25; A9270-GY; G0378; J2310; J7030

== ENCOUNTER 2020-06-20 15:25 | Emergency (ER) | payer MEDICARE, MEDICAID ==
[2020-06-20] MEDS: Albuterol/Ipratropium 3.0-0.5 MG/3 ML Neb Soln NEB ONE (16:08)
--- NOTE | 2020-06-20 16:26 | EDM.PDOC ---
ED HPI GENERAL MEDICAL PROBLEM - General Chief Complaint: Respiratory Problem Time Seen by Provider: 06/20/20 16:18 Source of Information: Reports: Patient History Limitations: Reports: No Limitations - History of Present Illness INITIAL COMMENTS - FREE TEXT/NARRATIVE: Patient presents with worsening dyspnea that started 2 weeks ago. 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 She is on 4 liters of oxygen 24/7. She can't check her O2 at home but felt very short of breath. Here she is 100% sats on 4 liters. She is currently doing radiation and chemo. - Related Data Allergies Allergy/AdvReac Type Severity Reaction Status Date / Time bismuth subsalicylate Allergy Hives Verified 06/20/20 15:56 [From Pepto-Bismol] Home Meds: Home Meds Albuterol [Ventolin HFA] 2 puff INH Q6H PRN 02/09/19 [History] Baclofen 20 mg PO QID 02/09/19 [History] Carbidopa/Levodopa [Carbidopa-Levodopa 10-100] 1 each PO DAILY 02/09/19 [History] Gabapentin [Neurontin] 800 mg PO TID 02/09/19 [History] Naproxen Sodium [Aleve] 440 mg PO DAILY 02/09/19 [History] Zolpidem [Ambien] 10 mg PO BEDTIME PRN 02/09/19 [History] ALPRAZolam [Alprazolam] 0.5 mg PO TID 05/07/19 [History] Escitalopram [Lexapro] 20 mg PO DAILY 06/13/19 [History] Ondansetron [Zofran ODT] 4 mg PO Q6H 06/13/19 [History] Vitamin B Complex [B Complex] 1 each PO DAILY 06/13/19 [History] levETIRAcetam [Levetiracetam] 1,000 mg PO BID 06/13/19 [History] Omeprazole 20 mg PO BID 08/09/19 [History] ARIPiprazole [Aripiprazole] 5 mg PO DAILY 12/01/19 [History] Sennosides [Senna] 17.2 mg PO DAILY 12/01/19 [History] Past Medical History HEENT History: Reports: Impaired Vision Cardiovascular History: Reports: Heart Murmur, Hypertension Respiratory History: Reports: Asthma Gastrointestinal History: Reports: [employer]OPER History: Reports: 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 Neurological History: Reports: Cerebral Aneurysms, Migraines Psychiatric History: Reports: Addiction, Anxiety, Depression, Other (See Below) Other Psychiatric History: overdosed on Oxy., Benzos and Marijuana 12/01/2019 Dermatologic History: Reports: Melanoma, Other (See Below) Other Dermatologic History: unsure, though possibly has had melanoma with skin grafting. - Past Surgical History GI Surgical History: Reports: Colonoscopy Neurological Surgical History: Reports: Other (See Below) Other Neurological Surgeries/Procedures: angiogram; coiling of cerebral aneurysm in February. Social & Family History - Family History Family Medical History: Noncontributory - Caffeine Use Caffeine Use: Reports: Soda Caffeine Use Comment: pt not answering ED ROS GENERAL - Review of Systems Review Of Systems: See Below Constitutional: Denies: Fever, Diaphoresis HEENT: Denies: Ear Pain, Throat Pain, Vision Change Respiratory: Reports: Shortness of Breath, Cough. Denies: Wheezing Cardiovascular: Denies: Chest Pain, Lightheadedness, Syncope GI/Abdominal: Denies: Abdominal Pain, Diarrhea, Nausea, Vomiting : Denies: Dysuria, Flank Pain Musculoskeletal: Denies: Neck Pain, Shoulder Pain, Arm Pain, Back Pain, Hand Pain Skin: Denies: Cyanosis, Jaundice, Mottled Neurological: Reports: Difficulty Walking (gets dyspneic quickly). Denies: Confusion, Dizziness, Headache, Seizure, Syncope, Trouble Speaking Psychiatric: Reports: Anxiety. Denies: Agitation ED EXAM, GENERAL - Physical Exam Exam: See Below Exam Limited By: No Limitations General Appearance: Alert, WD/WN, No Apparent Distress Eye Exam: Bilateral Eye: EOMI, Normal Inspection, PERRL Ears: Normal External Exam, Hearing Grossly Normal Nose: Normal Inspection, No Blood Throat/Mouth: Normal Inspection, Normal Lips, Normal Voice, No Airway Compromise Head: Atraumatic, Normocephalic Neck: Normal Inspection, Supple, Non-Tender, Full Range of Motion Respiratory/Chest: No Respiratory Distress, Decreased Breath Sounds (distant), Other (after duoneb, lung sounds improved but she still had prolonged expiration with wheezing when trying to cough). No: Crackles, Rales, Rhonchi, Wheezing, Stridor Cardiovascular: Regular Rate, Rhythm (normal rate now), No Murmur GI/Abdominal: Soft, Non-Tender, No Organomegaly, No Distention Back Exam: Normal Inspection, Full Range of Motion. No: CVA Tenderness (L), CVA Tenderness (R) Extremities: Normal Inspection Neurological: Alert, Oriented, Normal Cognition, No Motor/Sensory Deficits Psychiatric: Normal Affect, Anxious Skin Exam: Warm, Dry, Intact, Normal Color, No Rash Course - Vital Signs Last Recorded V/S: Last Vital Signs Temp 98 F 06/20/20 16:02 Pulse 81 06/20/20 18:16 Resp 24 H 06/20/20 18:16 BP 167/90 H 06/20/20 18:16 Pulse Ox 94 L 06/20/20 18:16 - Orders/Labs/Meds Orders: Active Orders 24 hr Category Date Time Status CBC WITH AUTO DIFF [HEME] Stat Lab 06/20/20 15:40 Received CULTURE BLOOD [BC] Stat Lab 06/20/20 16:40 Ordered CULTURE BLOOD [BC] Stat Lab 06/20/20 16:40 Ordered Blood Culture x2 Reflex Set [OM.PC] Stat Oth 06/20/20 16:40 Ordered Labs: Laboratory Tests 06/20/20 06/20/20 Range/Units 15:40 15:40 Sodium 141 (136-145) mmol/L Potassium 4.0 (3.3-5.3) mmol/L Chloride 105 (98-115) mmol/L Carbon Dioxide 31.2 (21.0-32.0) mmol/L Anion Gap 8.8 (5-15) mmol/L BUN 19 (6-25) mg/dL Creatinine 0.60 (0.51-1.17) mg/dL Est Cr Clr Drug Dosing 79.00 mL/min Estimated GFR (MDRD) > 60 mL/min Glucose 126 H (75 - 99) mg/dL Lactic Acid 0.6 (0.4-2.0) mmol/L Calcium 8.5 L (8.7-10.3) mg/dL Total Bilirubin 0.1 L (0.2-1.0) mg/dL AST 14 L (15-37) U/L ALT 24 (12-78) U/L Alkaline Phosphatase 72 (46-116) IU/L Total Protein 6.6 (6.4-8.2) g/dL Albumin 3.31 (3.00-4.80) g/dL Meds: Medications Discontinued Medications Generic Name Dose Route Start Last Admin Trade Name Kim PRN Reason Stop Dose Admin Albuterol/Ipratropium 3 ml 06/20/20 16:04 06/20/20 16:08 Duoneb 3.0-0.5 Mg/3 Ml NEB 06/20/20 16:05 3 ml ONETIME ONE Administration Heparin Sodium (Porcine) 300 units 06/20/20 18:07 06/20/20 18:13 Heparin Lock Flush 100 Units/Ml FLUSH 300 units ASDIRECTED PRN Administration picc Sodium Chloride 50 mls @ 200 mls/hr 06/20/20 17:00 06/20/20 17:29 Normal Saline IV 200 mls/hr ASDIRECTED SANJANA Administration Iopamidol 100 ml 06/20/20 17:00 06/20/20 17:29 Isovue-370 (76%) IV 06/20/20 17:01 75 ml ONETIME ONE Administration - Re-Assessments/Exams Free Text/Narrative Re-Assessment/Exam: 06/20/20 16:44 WBC is 0.8 06/20/20 17:42 CXR shows tenting of left hemidiaphragm which was present to a lesser extent on CXR in February 2020. Radiologist advised CT with contrast to better evaluate and exclude underlying radiographically occult neoplastic change. No evidence of pneumonia, edema, effusion or pneumothorax. 06/20/20 18:03 CT shows no evidence of pneumonia, effusion, edema or other acute findings. Comparison with CT from February 2020 shows decrease in the left mediastinal neoplasm. There is tenting of left hemidiaphragm consistent with scar tissue. Upper lobe predominant parenchymal emphysema in both lungs. I discussed findings with patient. She is feeling better after the Duoneb and is ready to go home knowing that there is nothing she needs antibiotics for. I discussed that with her low WBC she needs to recheck TASNEEM if she develops a fever. She doesn't want a nebulizer at this time, wants to just continue with her inhaler. Temp is good now and blood pressure is improved. Discharged to home in stable condition. Departure - Departure Time of Disposition: 18:11 Disposition: Home, Self-Care 01 Condition: Good Clinical Impression: Dyspnea Qualifiers: Dyspnea type: unspecified Qualified Code(s): R06.00 - Dyspnea, unspecified Lung cancer Qualifiers: Laterality: left Lung location: hilum of lung Qualified Code(s): C34.02 - Malignant neoplasm of left main bronchus Emphysema of lung Qualifiers: Emphysema type: unspecified Qualified Code(s): J43.9 - Emphysema, unspecified - Discharge Information Instructions: Chronic Obstructive Pulmonary Disease, [id number] Referrals: Lioc Lee [employer] [Primary Care Provider] - Forms: ED Department Discharge Additional Instructions: Use the inhaler as needed. Follow up with your PCP next week for recheck or sooner if worsening. Recheck TASNEEM if fever develops. Sepsis Event Note (ED) - Evaluation Sepsis Screening Result: Possible Sepsis Risk - Focused Exam Vital Signs: Vital Signs Temp Pulse Resp BP Pulse Ox 06/20/20 18:16 81 24 H 167/90 H 94 L 06/20/20 16:02 98 F 108 H 28 H 175/107 H 100 - My Orders Last 24 Hours: My Active Orders 06/20/20 15:40 CBC WITH AUTO DIFF [HEME] Stat 06/20/20 16:40 CULTURE BLOOD [BC] Stat CULTURE BLOOD [BC] Stat Blood Culture x2 Reflex Set [OM.PC] Stat - Assessment/Plan Last 24 Hours: My Active Orders 06/20/20 15:40 CBC WITH AUTO DIFF [HEME] Stat 06/20/20 16:40 CULTURE BLOOD [BC] Stat CULTURE BLOOD [BC] Stat Blood Culture x2 Reflex Set [OM.PC] Stat
--- NOTE | 2020-06-20 16:36 | CR ---
[id number] RAD/RAD Chest PA And Lateral EXAM: RAD Chest PA And Lateral INDICATION: SHORT OF BREATH,COUGH. COMPARISON: May 12, 2020 DISCUSSION: Tenting of the left hemidiaphragm. Correlation is made with numerous prior examinations dating to October 2018. Similar finding was seen on an examination from March 05, 2020, however to a lesser extent. Finding is nonspecific and possibly secondary to cicatricial change, as patient has history of left-sided lung cancer. Consider follow-up CT examination with intravenous contrast to better evaluate these findings and exclude any underlying radiographically occult neoplastic change. Right-sided PICC in place with tip in the mid SVC. No evidence of pneumonia, edema, effusion, or pneumothorax. IMPRESSION: As above. Finn Vickers MD 06/20/20 [id number] Thank you for allowing us to participate in the care of your patient.
[2020-06-20] MEDS: Iopamidol 755 Mg/ML 100 ML Bottle IV ONE (17:29)
[2020-06-20] MEDS: Sodium Chloride 0.9% 50 ML IV SCH (17:29)
--- NOTE | 2020-06-20 17:47 | CT ---
[id number] CT/CT Chest W IV EXAM: CT Chest W IV CLINICAL DATA: DYSPNEA,NEUTROPENIA, LUNG CANCER. COMPARISON: Radiograph from today. FINDINGS: LUNGS: Tenting of the left hemidiaphragm is consistent with a linear band of scar tissue. No evidence of new neoplastic disease in the chest. Upper lobe predominant parenchymal emphysema throughout both lungs. No evidence of pneumonia, effusion, edema, or other acute findings. HEART AND GREAT VESSELS: Unremarkable. MEDIASTINUM AND LYMPHATICS: Persistent soft tissue density in the left mediastinum extending into the hilar region, correlating with site of metabolically active neoplasm on PET/CT from February 2020. Findings have decreased since that examination. UPPER ABDOMINAL ORGANS: Simple appearing cyst in the left hepatic lobe. BONES: Spondylosis. No fracture or osseous lesion. IMPRESSION: No acute findings in the chest. Tenting of the left hemidiaphragm is consistent with sequela of scarring. Other findings are described above. Finn Vickers MD 06/20/20 [id number] Thank you for allowing us to participate in the care of your patient.
[2020-06-20 18:52] LABS: ANION GAP 8.8 mmol/L (5-15); CHLORIDE,CL 105 mmol/L (98-115); SODIUM,NA 141 mmol/L (136-145)
== END 2020-06-20 18:20 | disposition home or self-care (01) ==
LOC: KA.ED 15:25
DX: J43.9 Emphysema, unspecified (principal); C34.02 Malignant neoplasm of left main bronchus; I10 Essential (primary) hypertension; J45.909 Unspecified asthma, uncomplicated; K21.9 Gastro-esophageal reflux disease without esophagitis; F41.9 Anxiety disorder, unspecified; F32.9 Major depressive disorder, single episode, unspecified; Z88.8 Allergy status to other drugs, medicaments and biological substances
CPT/HCPCS: 36415; 71046; 71260; 80053; 83605; 85025; 87040; 99284; 99285-25; J1642; J7050; J7620-GY; Q9967

== ENCOUNTER 2021-12-13 09:08 | Emergency (ER) | payer MEDICARE, MEDICAID ==
[2021-12-13] MEDS ORDERED: Amoxicillin/Clavulanate K 500-125 MG Tab PO ONE (09:35)
[2021-12-13] MEDS ORDERED: Amoxicillin/Clavulanate K 500-125 MG Tab PO SCH (09:45)
== END 2021-12-13 09:45 | disposition home or self-care (01) ==
LOC: KA.ED 09:08
DX: L03.115 Cellulitis of right lower limb (principal); I10 Essential (primary) hypertension; K21.9 Gastro-esophageal reflux disease without esophagitis; J45.909 Unspecified asthma, uncomplicated; Z91.048 Other nonmedicinal substance allergy status; Z88.8 Allergy status to other drugs, medicaments and biological substances; Z72.0 Tobacco use; Z79.899 Other long term (current) drug therapy
CPT/HCPCS: 87070; 87075; 87186; 87205; 99283; A9270-GY

== ENCOUNTER 2021-12-19 10:21 | Emergency (ER) | payer MEDICARE, MEDICAID ==
[2021-12-19] MEDS ORDERED: Sodium Chloride 0.9% 1,000 ML IV ONE (10:29)
[2021-12-19] MEDS ORDERED: Sodium Chloride 0.9% 10 ML Syringe FLUSH PRN (10:29)
[2021-12-19] MEDS ORDERED: Albuterol/Ipratropium 3.0-0.5 MG/3 ML Neb Soln NEB ONE (10:47)
[2021-12-19 11:09] LABS: CHLORIDE,CL 104 mmol/L (98-107); SODIUM,NA 142 mmol/L (136-145)
== END 2021-12-19 12:05 | disposition home or self-care (01) ==
LOC: KA.ED 10:21
DX: J44.1 Chronic obstructive pulmonary disease with (acute) exacerbation (principal); D61.818 Other pancytopenia; K21.9 Gastro-esophageal reflux disease without esophagitis; Z91.048 Other nonmedicinal substance allergy status; Z88.8 Allergy status to other drugs, medicaments and biological substances; Z79.899 Other long term (current) drug therapy
CPT/HCPCS: 36415; 71046; 80053; 83605; 83880; 84484; 85025; 93005; 93010; 94640; 99284; 99285-25; J7030; J7620-GY

== ENCOUNTER 2022-03-18 00:01 | Emergency (ER) | payer MEDICARE, MEDICAID ==
[2022-03-18 01:07] LABS: ANION GAP 10.4 mmol/L (5-15); CHLORIDE,CL 102 mmol/L (98-107); SODIUM,NA 140 mmol/L (136-145)
[2022-03-18 01:09] LABS: ESTIMATED GFR 77 mL/min (>=60)
== END 2022-03-18 01:00 | disposition home or self-care (01) ==
LOC: KA.ED 00:01
DX: C34.02 Malignant neoplasm of left main bronchus (principal); D70.1 Agranulocytosis secondary to cancer chemotherapy; T45.1X5A Adverse effect of antineoplastic and immunosuppressive drugs, initial encounter; D69.6 Thrombocytopenia, unspecified; K21.9 Gastro-esophageal reflux disease without esophagitis; I10 Essential (primary) hypertension; Z88.8 Allergy status to other drugs, medicaments and biological substances; Z79.899 Other long term (current) drug therapy
CPT/HCPCS: 36415; 80053; 81003; 85025; 99284; 99285

== ENCOUNTER 2022-04-22 15:22 | Observation (INO) | payer MEDICARE, MEDICAID ==
[2022-04-22 16:38] LABS: ANION GAP 10.8 mmol/L (5-15); CHLORIDE,CL 102 mmol/L (98-107); SODIUM,NA 138 mmol/L (136-145)
[2022-04-22 16:39] LABS: ESTIMATED GFR 65 mL/min (>=60)
[2022-04-22] MEDS ORDERED: Sodium Chloride 0.9% 1,000 ML IV ONE (17:38)
[2022-04-22] MEDS ORDERED: Sodium Chloride 0.9% 10 ML Syringe FLUSH PRN (17:38)
[2022-04-22] MEDS ORDERED: Dexamethasone 4 MG/ML SDV IVPUSH ONE (17:39)
[2022-04-22] MEDS ORDERED: cefTRIAXone 1 GM Vial IVPUSH ONE (18:08)
[2022-04-22] MEDS ORDERED: Gabapentin 300 MG Cap PO SCH (22:00)
[2022-04-22] MEDS ORDERED: Gabapentin 100 MG Cap PO SCH (22:00)
[2022-04-22] MEDS ORDERED: Albuterol/Ipratropium 3.0-0.5 MG/3 ML Neb Soln NEB PRN (22:08)
[2022-04-22] MEDS ORDERED: Ondansetron 4 MG/2 ML SDV IV PRN (22:08)
[2022-04-22] MEDS ORDERED: Albuterol 8 GM Inhaler INH PRN (22:13)
[2022-04-22] MEDS ORDERED: Zolpidem 5 MG Tab PO PRN (22:13)
[2022-04-22] MEDS ORDERED: Albuterol 0.083% 2.5 MG/3 ML Neb Soln INH PRN (22:13)
[2022-04-22] MEDS ORDERED: Acetaminophen/oxyCODONE 325-5 MG Tab PO PRN (22:13)
[2022-04-22] MEDS ORDERED: Pantoprazole 40 MG Tab.CR PO PRN (22:13)
[2022-04-22] MEDS ORDERED: ALPRAZolam 0.25 MG Tab PO PRN (22:13)
[2022-04-22] MEDS ORDERED: Baclofen 10 MG Tab PO PRN (22:13)
[2022-04-22] MEDS ORDERED: Sodium Chloride 0.9% 1,000 ML IV SCH (22:15)
[2022-04-22] MEDS: Gabapentin 300 MG Cap PO SCH (23:11)
[2022-04-22] MEDS: Gabapentin 100 MG Cap PO SCH (23:12)
[2022-04-22] MEDS: Sodium Chloride 0.9% 1,000 ML IV SCH (23:15)
[2022-04-23] MEDS: Sodium Chloride 0.9% 1,000 ML IV SCH (07:36)
[2022-04-23 07:51] LABS: ANION GAP 10.7 mmol/L (5-15)
[2022-04-23] MEDS ORDERED: Budesonide 0.5 MG/2 ML Neb Susp INH SCH (08:00)
[2022-04-23] MEDS ORDERED: Multivitamins with Minerals/Iron/Folic Acid/Lycopene Tab PO SCH (09:00)
[2022-04-23] MEDS ORDERED: DRONABINOL 5 MG PO SCH (09:00)
[2022-04-23] MEDS ORDERED: Carbidopa/Levodopa 10-100 MG Tab PO SCH (09:00)
[2022-04-23] MEDS ORDERED: Non-Formulary Medication 1 Each (Glycopyrrolate/Formoterol Fum [Bevespi Aerosphere Inhaler INH SCH (09:00)
[2022-04-23] MEDS ORDERED: Non-Formulary Medication 1 Each (Nabumetone [Nabumetone] 500 MG Tablet) PO SCH (09:00)
[2022-04-23] MEDS ORDERED: Vitamin B Complex Tab PO SCH (09:00)
[2022-04-23] MEDS ORDERED: ARIPiprazole 5 MG Tab PO SCH (09:00)
[2022-04-23] MEDS ORDERED: Escitalopram 10 MG Tab PO SCH (09:00)
[2022-04-23] MEDS: Gabapentin 300 MG Cap PO SCH ×2 (09:55→12:32)
[2022-04-23] MEDS: Gabapentin 100 MG Cap PO SCH ×2 (09:55→12:32)
[2022-04-23] MEDS ORDERED: cefTRIAXone 1 GM Vial IVPUSH SCH (10:00)
== END 2022-04-23 13:56 | disposition home or self-care (01) ==
LOC: KA.ED 15:22 → KA.MS 20:00 → UNDOADMOB 20:00 → KA.MS 20:07
PROVIDERS: ADMIT Internal Medicine; ATTEND Internal Medicine
DX: R53.1 Weakness (principal); D61.818 Other pancytopenia; R53.83 Other fatigue; I10 Essential (primary) hypertension; K21.9 Gastro-esophageal reflux disease without esophagitis; M19.90 Unspecified osteoarthritis, unspecified site; F41.9 Anxiety disorder, unspecified; F32.A Depression, unspecified; N30.01 Acute cystitis with hematuria; R29.6 Repeated falls; J44.9 Chronic obstructive pulmonary disease, unspecified; F17.210 Nicotine dependence, cigarettes, uncomplicated; Z91.038 Other insect allergy status; Z79.899 Other long term (current) drug therapy; Z20.822 Contact with and (suspected) exposure to COVID-19; Z79.891 Long term (current) use of opiate analgesic; Z79.51 Long term (current) use of inhaled steroids; Z88.3 Allergy status to other anti-infective agents; Z99.81 Dependence on supplemental oxygen
CPT/HCPCS: 36415; 71045; 80053; 81001; 83605; 85025; 87086; 87088; 87186; 96361; 96374; 96375; 96376; 99220; 99285-25; A9270-GY; G0378; J0696; J1100; J7030; U0002

== ENCOUNTER 2022-08-22 00:15 | Emergency (ER) | payer MEDICARE, MEDICAID | END 2022-08-22 00:55 | disposition home or self-care (01) | LOC: KA.ED 00:15 | DX: I89.0 Lymphedema, not elsewhere classified (principal); I10 Essential (primary) hypertension; K21.9 Gastro-esophageal reflux disease without esophagitis; Z91.048 Other nonmedicinal substance allergy status; Z88.8 Allergy status to other drugs, medicaments and biological substances; Z79.899 Other long term (current) drug therapy | CPT/HCPCS: 99283 ==